=== PATIENT | male | born 1935 | race Caucasian/White ===

== ENCOUNTER 2021-08-24 03:47 | Inpatient (IN) | payer OTHER ==
[~2021-08-24] VITALS: Ht 188 cm; Wt 84.8 kg
--- NOTE | 2021-08-24 03:56 | NUR ---
pt bibra c/o sob. Pt aaox4 breathing evenly, but quickly. Per pt he was covid + on Aug 14 and has hx of lung cancer. Pt arrived with NRB @12 L O2 saturating 98%. Pt normally on 2L O2 via nc. Pt now placed on simple mask at 6L O2 saturating 97%. at bedside for bedside. Pt attached to monitor and pox. SKin is warm and dry. Pt give blanket and call light within reach
--- NOTE | 2021-08-24 03:57 | NUR ---
called lab for swabs
[2021-08-24] MEDS ORDERED: methylPREDNISolone SOD SUCC 125 MG/2ML VIAL ONE (03:58)
[2021-08-24] MEDS ORDERED: methylPREDNISolone SOD SUCC 125 MG/2ML VIAL IV ONE (04:00)
[2021-08-24] MEDS ORDERED: ALBUTEROL FS 2.5 MG/3 ML VIAL.NEB NEB ONE (04:00)
[2021-08-24] MEDS ORDERED: IPRATROPIUM NEB FS 0.5 MG/2.5 ML AMPUL.NEB NEB ONE (04:00)
[2021-08-24] MEDS ORDERED: IPRATROPIUM NEB FS 0.5 MG/2.5 ML AMPUL.NEB ONE (04:07)
[2021-08-24] MEDS ORDERED: ALBUTEROL FS 2.5 MG/3 ML VIAL.NEB ONE (04:07)
[2021-08-24] MEDS ORDERED: ATEN25TA PO (04:09)
[2021-08-24] MEDS ORDERED: LISI-768 PO (04:10)
[2021-08-24] MEDS ORDERED: RIVA10TA PO (04:10)
--- NOTE | 2021-08-24 04:11 | NUR ---
blood sent to lab
--- NOTE | 2021-08-24 04:11 | NUR ---
rt at bedside
[2021-08-24 04:18] LABS: HEMOGLOBIN 12.1 g/dL (13.5-17.5); LYMPHOCYTES # (AUTO) 0.8 K/uL (0.8-4.8)
--- NOTE | 2021-08-24 04:20 | NUR ---
SON (POWER OF ASSISTANT PROPERTY MANAGER) VIOLA LIMA PER SON PT DNI AND WILL DROP OFF ADVANCED DIRECTIVE AT A LATER DATE
[2021-08-24 04:22] LABS: BASOPHILS # (AUTO) 0.1 K/uL (0.0-0.2); BASOPHILS % (AUTO) 0.2 % (0.0-2.0); HEMATOCRIT 38 % (39-51); MEAN CORPUSCULAR HGB CONC 32 g/dl (31.0-36.0); MEAN CORPUSCULAR VOLUME 85 fL (80-96); MONOCYTES # (AUTO) 0.7 K/uL (0.1-1.30); MONOCYTES % (AUTO) 1.7 % (2.0-12.0); NEUTROPHILS % (AUTO) 96.1 % (43.0-81.0); PLATELET COUNT (AUTO) 451 K/uL (150-450); RED BLOOD CELL COUNT(AUTO) 4.43 MIL/uL (4.5-6.0)
--- NOTE | 2021-08-24 04:23 | NUR ---
xray at bedside
[2021-08-24 04:26] LABS: WHITE BLOOD COUNT (AUTO) 41.6 K/uL (4.3-11.0)
[2021-08-24] MEDS ORDERED: LEVOFLOXACIN 750 MG /D5W 150ML PIGGYBACK IV ONE (04:30)
[2021-08-24] MEDS ORDERED: IV NS 0.9% 1,000 ML BAG IV ONE (04:30)
--- NOTE | 2021-08-24 04:31 | NUR ---
LAUREN DONE AND SENT TO LAB
[2021-08-24 04:34] LABS: ABG BASE EXCESS 10.5 mmol/L; ABG OXYGEN SATURATION 93.9 % (92.0-98.5); ABG PCO2 60.6 mmHg (35.0-45.0); ABG PH 7.408 (7.350-7.450); ABG PO2 69.1 mmHg (75.0-100.0); AaDO2 175.5 mmHg; COHb 0.6 % (0.5-1.5); MetHb 0.1 % (0.0-1.5); O2Hb 93.2 % (94.0-97.0); SITE, ABG Right Radial; VENT MODE, BG 6 LSM
[2021-08-24 04:37] LABS: ALANINE AMINOTRANSFERASE 22 U/L (12-78); ALBUMIN 2.7 g/dL (3.4-5.0); ALKALINE PHOSPHATASE 88 U/L (46-116); ASPARTATE AMINOTRANSFERASE 19 U/L (15-37); BILIRUBIN,DIRECT 0.2 mg/dL (0.0-0.2); BILIRUBIN,TOTAL 0.4 mg/dL (0.2-1.0); CALCIUM, SERUM 8.9 mg/dL (8.5-10.1); CHLORIDE 85 mmol/L (98-107); CREATININE 0.6 mg/dL (0.6-1.3); GLUCOSE 101 mg/dL (74-106); POTASSIUM 4.8 mmol/L (3.5-5.1); SODIUM SERUM 127 mmol/L (136-145); TOTAL PROTEIN, SERUM 7.1 g/dL (6.4-8.2); UREA NITROGEN, BLOOD 21 mg/dL (7-18)
[2021-08-24] MEDS ORDERED: LEVOFLOXACIN 750 MG /D5W 150ML 150 ML IV ONE (04:38)
[2021-08-24 04:44] LABS: CARBON DIOXIDE 40 mmol/L (21-32)
[2021-08-24 04:45] LABS: D-DIMER 0.3 mg/L(FEU (0.17-0.50)
[2021-08-24 04:46] LABS: CREATINE KINASE, TOTAL 26 U/L (39-308); FERRITIN 503 ng/mL (8-388)
[2021-08-24] MEDS ORDERED: CEFEPIME 1 GM in IV D5W 50 ML IV SCH (05:00)
[2021-08-24] MEDS ORDERED: ACETAMINOPHEN 325 MG TABLET PO PRN (05:00)
[2021-08-24] MEDS ORDERED: ONDANSETRON HCL/PF 4 MG/2 ML VIAL IVP PRN (05:00)
[2021-08-24] MEDS ORDERED: ACETAMINOPHEN 650 MG/SUPP.RECT RC PRN (05:00)
[2021-08-24] MEDS ORDERED: ALBUTEROL SULFATE 8 GM HFA.AER.AD IH PRN (05:00)
[2021-08-24 05:08] LABS: NEUTROPHILS % (MANUAL) 85 (42-76)
[2021-08-24 05:09] LABS: BAND % (MANUAL) 6 % (0.0-5.0); LYMPHOCYTES % (MANUAL) 1 % (16-48); METAMYELOCYTES % 2 % (0-0); MYELOCYTES % 2 % (0-0); REACTIVE LYMPHOCYTES 4 % (0-0)
--- NOTE | 2021-08-24 05:19 | NUR ---
called house sup for annmarie bed
--- NOTE | 2021-08-24 05:22 | NUR ---
RECIEVED BED 103
--- NOTE | 2021-08-24 05:33 | NUR ---
called td to have images read, radiolgist reading now
--- NOTE | 2021-08-24 05:43 | NUR ---
gave report to severiano Sierra for tanya
--- NOTE | 2021-08-24 06:30 | NUR ---
0630 Admitted from ER 85 year old male via [place] with dx covid PNA. Awake alert and oriented x 4. On simple mask at 6L satting 98%. Noted with SOB on exertion. Placed on high vazquez's position for maximum oxygenation. Noted with crackles when checked. Admitted with IVF infusing to left AC site. Good blood return noted when checked. Vital signs stable. No c/o pain when asked. Placed on contact and droplet isolation for covid. Connected to aquaculture and fisheries professor, SR in the 70s. Call light placed within reach and instructed to call for assistance.
--- NOTE | 2021-08-24 06:50 | NUR ---
[address] Jassi Olvera called and updated him on patient's current condition. According to him patient does not wish to be intubated and he has an advanced directives that he will fax us as soon an possible. Clarified with patient and he said he does not want to be intubated and it was witnessed by another nurse. DRYING UNIT FELTING MACHINE OPERATOR Brie Busby was notified of patient's DNR DNI status. Per Dr. Jassi Olvera patient may be transferred to ICU if BP drops and may be started on pressor if needed.
--- NOTE | 2021-08-24 07:25 | NUR ---
0725 Report given to MEY Vogel for transfer of care with questions answered.
--- NOTE | 2021-08-24 07:45 | NUR ---
0745 Sleeping on high vazquez's position. No signs of respiratory distress noted. O2 saturation at 98%.
[2021-08-24] MEDS ORDERED: CEFEPIME 2 GM in IV D5W 100 ML IV SCH ×2 (08:00→13:00)
--- NOTE | 2021-08-24 08:00 | NUR ---
GAMALIEL RN NOTE RECEIVED PATENT IN BED ALERT ORIENTED ON 6L NC ,SATURATION 95%, ON TELE MONITOR SR HR 72 , LT AC HL INTACT ON IVF ORDERED , BED IN LOWEST AND LOCKED POSITION , PLAN OF CARE DISCUSSED WITH PATIENT, UNFITTED UNDER CARE DR PACKER, BELONGING CHECKED BY SCRATCHER TENDER , VS TAKEN , ATE 50 % 0F FOOD , WILL CONT TO MONITOR
[2021-08-24] MEDS: ATENOLOL 25 MG TABLET PO SCH (08:37)
[2021-08-24] MEDS: DEXAMETHASONE SOD PHOSPHATE 10 MG/ML VIAL IV SCH (08:38)
[2021-08-24] MEDS: PANTOPRAZOLE 40 MG TABLET.DR PO SCH (08:38)
[2021-08-24] MEDS: LISINOPRIL (5MG) 5 MG TABLET PO SCH (08:39)
[2021-08-24 09:23] VITALS: BP 136/67
--- NOTE | 2021-08-24 09:35 | NUR ---
GAMALIEL RN NOTE SEEN BY DR PEREZ PHARMACY INTAKE COORDINATOR UPDATED PATIENT CONDITION , AWARE THAT VERY CONGESTED , STSTED THAT WILL CHECK IT OUT
--- NOTE | 2021-08-24 11:00 | NUR ---
director telecommunications note patient c\o unable to urinate , spoke with son and called to dr cecilio barkley to insert Travis roper , order carried out Addendum: 08/24/21 at 1106 by JUSTIN BRADLEY RN TRAVIS CATH FULL STACK SOFTWARE DEVELOPER ORDERED WITH 300 ML OF YELLOW COLOR URINE NOTED WILL MONITOR
[2021-08-24 12:19] VITALS: BP 107/59
--- NOTE | 2021-08-24 12:22 | NUR ---
GIS DATABASE ADMINISTRATOR NOTE DR PACKER AT BEDSIDE NOTIFIED THAT PATIENT VERY CONGESTED ALSO REPORTED THAT PER TECH LT LEG DVT NO REPORT ON COMPUTER YET ,PATIENT ON XARELTO PO STATED THAT WILL CHECK IT OUT
[2021-08-24] MEDS: DOXYCYCLINE 100 MG in IV D5W 100 ML IV SCH ×2 (13:15→20:02)
--- NOTE | 2021-08-24 15:00 | NUR ---
TUBULAR RIVETER NOTE SEEN BY ID DOCTOR AWARE THAT WBC 41.6 WILL F\U
[2021-08-24] MEDS: CEFEPIME 2 GM in IV D5W 100 ML IV SCH ×2 (15:56→23:35)
[2021-08-24 16:52] VITALS: BP 135/82
[2021-08-24] MEDS ORDERED: RIVAROXABAN 10 MG TABLET PO SCH (17:00)
--- NOTE | 2021-08-24 18:23 | NUR ---
SENIOR MERCHANDISER NOTE HAVING DINNER, STILL WIT SOB NOTED , ON 8L SIMPLE MASK SATURATION 95% AT THIS TIME, ON IV ATB ORDERED BED IN LOWEST AND LOCKED POSITION , ALERT ORIENTED , CALL LIGHT WITHIN REACH , WILL MONITOR
--- NOTE | 2021-08-24 19:15 | NUR ---
TREE TRIMMING SUPERVISOR NOTE PT AWAKE IN BED, WATCHING TV, A/OX4, ABLE TO VERBALIZE NEEDS. HAS EPISODES OF SOB AND CONGESTED COUGHING. CONT ON O2 @8LPM SIMPLE MASK, O2SAT 97% AT THIS TIME. NO C/O PAIN/DISCOMFORT. TELE MONITOR READING SR 76. F/C IN PLACE, DRAINING CLEAR YELLOW URINE. PT IN NO ACUTE DISTRESS. SAFETY MEASURES IN PLACE, BED IN LOWEST LOCKED POSITION, S/R UPX2, CALL LIGHT WITHIN REACH. WILL CONT TO MONITOR.
[2021-08-24 20:00] VITALS: BP 142/79
--- NOTE | 2021-08-24 21:00 | NUR ---
RN NOTE O2 TO 6LPM VIA SIMPLE MASK AT THIS TIME, O2 SAT 96-97%
[2021-08-25] VITALS: BP 154/80
--- NOTE | 2021-08-25 00:30 | NUR ---
RN NOTE PATIENT O2:84 ON 6L OXYGEN VIA NASAL CANNULA,CHANGED TO NON REBREATHER MASK AND INCREASED TO 15L DR PEREZ WANTS TO 88 AND ABOVE CONTINUE TO MONITOR.
[2021-08-25 05:00] VITALS: BP 134/81
--- NOTE | 2021-08-25 06:45 | NUR ---
DITCH RIDER CLOSING NOTE PT RESTING IN BED, EASILY AROUSABLE TO STIMULI, A/OX4, ABLE TO VERBALIZE NEEDS. STILL WITH SOB AND CONGESTED COUGH. CONT'D O2 @8LPM SIMPLE MASK, O2SAT 96% AT THIS TIME. DENIES PAIN. TELE MONITOR READING SR 70'S. F/C IN PLACE, DRAINING CLEAR YELLOW URINE. NO ACUTE DISTRESS. SAFETY MEASURES MAINTAINED, BED IN LOWEST LOCKED POSITION, S/R UPX2, CALL LIGHT WITHIN REACH.
[2021-08-25 07:15] LABS: ALANINE AMINOTRANSFERASE 17 U/L (12-78); ALBUMIN 2.1 g/dL (3.4-5.0); ALKALINE PHOSPHATASE 74 U/L (46-116); ASPARTATE AMINOTRANSFERASE 16 U/L (15-37); BILIRUBIN,TOTAL 0.4 mg/dL (0.2-1.0); CALCIUM, SERUM 8.2 mg/dL (8.5-10.1); CARBON DIOXIDE 38 mmol/L (21-32); CHLORIDE 86 mmol/L (98-107); CREATININE 0.4 mg/dL (0.6-1.3); GLUCOSE 102 mg/dL (74-106); MAGNESIUM 1.9 mg/dL (1.8-2.4); PHOSPHORUS 2.6 mg/dL (2.5-4.9); POTASSIUM 4.3 mmol/L (3.5-5.1); SODIUM SERUM 121 mmol/L (136-145); UREA NITROGEN, BLOOD 16 mg/dL (7-18)
--- NOTE | 2021-08-25 07:30 | NUR ---
COMMODITIES TRADER OPENING NOTES RECEIVED PT AWAKE IN BED, A/OX4, ABLE TO VERBALIZE NEEDS. NOTED WITH EPISODES OF SOB AND CONGESTED COUGHING. CONT ON O2 @6-8LPM SIMPLE MASK, O2SAT 99% AT THIS TIME. NO C/O PAIN/DISCOMFORT. ON EXTERNAL MONITOR SHOWING SR HR AT80'S. F/C IN PLACE, DRAINING CLEAR YELLOW URINE. PT IN NO ACUTE DISTRESS. SAFETY MEASURES IN PLACE, BED IN LOWEST LOCKED POSITION, SIDE RAILS UP X 2, CALL LIGHT WITHIN REACH. WILL CONTINUE TO MONITOR ACCORDINGLY.
[2021-08-25 07:31] LABS: BASOPHILS % (AUTO) 0.1 % (0.0-2.0); HEMATOCRIT 33 % (39-51); HEMOGLOBIN 10.6 g/dL (13.5-17.5); LYMPHOCYTES # (AUTO) 0.5 K/uL (0.8-4.8); LYMPHOCYTES % (AUTO) 1.2 % (20.0-44.0); MEAN CORPUSCULAR HGB CONC 32 g/dl (31.0-36.0); MEAN CORPUSCULAR VOLUME 85 fL (80-96); MONOCYTES # (AUTO) 0.8 K/uL (0.1-1.30); MONOCYTES % (AUTO) 1.9 % (2.0-12.0); NEUTROPHILS # (AUTO) 42.4 K/uL (1.8-8.9); NEUTROPHILS % (AUTO) 96.8 % (43.0-81.0); PLATELET COUNT (AUTO) 306 K/uL (150-450); RED BLOOD CELL COUNT(AUTO) 3.87 MIL/uL (4.5-6.0)
[2021-08-25 07:38] LABS: WHITE BLOOD COUNT (AUTO) 43.8 K/uL (4.3-11.0)
[2021-08-25] MEDS: PANTOPRAZOLE 40 MG TABLET.DR PO SCH (07:55)
--- NOTE | 2021-08-25 08:00 | NUR ---
RN NOTES DUE CEFEPIME NOT YET AVAILABLE, INFORMED PHARMACY AND SPOKE TO [facility]. PER [facility] THEY WILL BE SENDING DUE DOSE.
[2021-08-25] MEDS: DEXAMETHASONE SOD PHOSPHATE 10 MG/ML VIAL IV SCH (08:30)
[2021-08-25] MEDS: LISINOPRIL (5MG) 5 MG TABLET PO SCH (08:30)
[2021-08-25] MEDS: ATENOLOL 25 MG TABLET PO SCH (08:30)
[2021-08-25] MEDS: DOXYCYCLINE 100 MG in IV D5W 100 ML IV SCH ×2 (08:31→20:15)
[2021-08-25] MEDS: CEFEPIME 2 GM in IV D5W 100 ML IV SCH ×2 (09:28→15:29)
[2021-08-25 09:39] VITALS: BP 164/74
--- NOTE | 2021-08-25 09:46 | NUR ---
WOUND CARE CONSULT: REVIEWED CHART, NURSING DOCUMENTATION AND PHOTOS WHICH INDICATE SACRAL SCAR AND RASH TO PERINEUM, INNER BUTTOCKS AND GROIN FOLDS, PRESENT ON ADMISSION. RECOMMENDATIONS MADE FOR SKIN PROTECTION. DISCUSSED WITH NURSING STAFF. [facility]. MD IN AGREEMENT WITH PLAN OF CARE.
[2021-08-25] MEDS ORDERED: Z GUARD REMEDY 2 OZ OINT TP PRN (10:00)
[2021-08-25] MEDS: Z GUARD REMEDY 2 OZ OINT TP SCH (10:00)
[2021-08-25 10:18] LABS: LYMPHOCYTES % (MANUAL) 2 % (16-48); MONOCYTES % (MANUAL) 3 % (0-11.0); NEUTROPHILS % (MANUAL) 95 (42-76)
--- NOTE | 2021-08-25 11:00 | NUR ---
RN NOTES PATIENT NOTED WITH A-FIB, DR. PACKER ON UNIT, AWARE, NO NEW ORDERS MADE. DR. PACKER UPDATED PATIENT'S SON VIA PHONE CALL.
[2021-08-25] MEDS ORDERED: TOCILIZUMAB 400 MG in IV NS 0.9% 80 ML IV ONE (12:00)
[2021-08-25 12:13] LABS: C-REACTIVE PROTEIN 27.4 mg/dL (0.0-0.9)
[2021-08-25 12:37] LABS: FERRITIN 613 ng/mL (8-388)
--- NOTE | 2021-08-25 13:23 | NUR ---
RN NOTES PATIENT NOTED WITH A-FIB HR AT 130'S. DR PACKER MADE AWARE. NO NEW ORDERS MADE.
[2021-08-25 13:58] VITALS: BP 138/72
[2021-08-25] MEDS ORDERED: IV D5/ 0.9% NACL 1,000 ML IV PRN (14:00)
[2021-08-25 14:43] LABS: C-REACTIVE PROTEIN 21.6 mg/dL (0.0-0.9)
[2021-08-25 15:02] LABS: ABG BASE EXCESS 7.9 mmol/L; ABG OXYGEN SATURATION 95.3 % (92.0-98.5); ABG PH 7.284 (7.350-7.450); ABG PO2 81.1 mmHg (75.0-100.0); AaDO2 258.7 mmHg; MetHb 0.3 % (0.0-1.5); SITE, ABG Right Radial; VENT MODE, BG SIMPLE MASK
--- NOTE | 2021-08-25 15:47 | NUR ---
PT PLACED ON 6LPM VIA N/C POST ABG PER DR PEREZ. GOAL TO MAINTAIN SPO2 88% SPO2 89% HR 93 Addendum: 08/25/21 at 1551 by ELSA HONG RT Amended: Links added.
[2021-08-25] MEDS ORDERED: IV NS 0.9% 250 ML IV ONE (16:31)
[2021-08-25] MEDS ORDERED: IOHEXOL-350 100 ML VIAL IV ONE (16:31)
[2021-08-25] MEDS: CLOTRIMAZOLE 1% 15 GM TUBE TP SCH (16:37)
[2021-08-25 17:02] VITALS: BP 121/79
[2021-08-25] MEDS: RIVAROXABAN 10 MG TABLET PO SCH (17:30)
--- NOTE | 2021-08-25 18:36 | NUR ---
RN NOTE RECEIVED PATIENT IN BED RESTING ALERT ORIENTED X4 VERBALLY RESPONSIVE ON 6L OXYGEN VIA NASAL CANNULA O2:90% IV SITE IS ON LEFT AC INTACT PATENT ON IV HYDRATION D5NS 75CC/HR,ROBLES CATHETER IN PLACE URINE DRAINING YELLOW AND CLEAR BY GRAVITY,SAFETY MEASURE IMPLEMENT BED IN LOW POSITON AND LOCKED CALL LIGHT WITHIN REACH CONTINUE TO MONITOR.
--- NOTE | 2021-08-25 18:37 | NUR ---
FORM STRIPPER CLOSING NOTES RECEIVED PT AWAKE IN BED, A/OX4, ABLE TO VERBALIZE NEEDS. NOTED WITH EPISODES OF SOB AND CONGESTED COUGHING. ON O2 @6LPM VIA NC TO MAINTAIN SATURATION AT 88 AND ABOVE, O2 SAT 89% AT THIS TIME. NO C/O PAIN/DISCOMFORT. ON EXTERNAL MONITOR SHOWING SR WITH A-FIB HR AT 80'S. F/C IN PLACE, DRAINING CLEAR YELLOW URINE. PT IN NO ACUTE DISTRESS. SAFETY MEASURES IN PLACE, BED IN LOWEST LOCKED POSITION, SIDE RAILS UP X 2, CALL LIGHT WITHIN REACH. ALL NEEDS ATTENDED AND MET, DUE MEDS GIVEN ORDERED. WILL ENDORSE TO ONCOMING SHIFT FOR ANGUS.
[2021-08-25 21:00] VITALS: BP 153/83
[2021-08-26 01:00] VITALS: BP 89/46
--- NOTE | 2021-08-26 01:00 | NUR ---
RN NOTE CALLED VEGETABLE FARMER WAFER CUTTER KARLENE GAN, AND NOTIFIED,SHE ORDERED DISCONTINUE IV HYDRATION NOTED AND CARRIED OUT.
--- NOTE | 2021-08-26 01:30 | NUR ---
RN NOTE CALLED SON MELODIE INFORMED PATIENT SITUATION HE KEEPS DNR/DNI CODE STATUS CONTINUE TO MONITOR.
--- NOTE | 2021-08-26 01:41 | NUR ---
RN NOTE PATIENT SON CALLED AND REQUESTING FACETIME WITH PATIENT,SON DID FACETIME WITH PATIENT CONTINUE TO MONITOR./
--- NOTE | 2021-08-26 02:00 | NUR ---
RN NOTE PATIENT'S AND DAUGHTER DID FACETIME WTIH PATIENT,CONTINUE TO MONITOR.
[2021-08-26 05:00] VITALS: BP 107/52
--- NOTE | 2021-08-26 05:00 | NUR ---
RN NOTE PATIENT'S FAMILY ,SON, DAUGHTER CAME TO HOSPITAL AND VISIT PATIENT FROM OUT SIDE OF ROOM FROM WINDOW,FAMILY REFUSES PATIENT DO BLOOD DRAW FOR LAB NOTED,CONTINUE TO MONITOR.
--- NOTE | 2021-08-26 06:48 | NUR ---
RN NOTE PATIENT DECLINING ON NON REBREATHER MASK 15L O2:98% NOT VERBALLY RESPONSIVE ONLY RESPONSIVE TO PAIN STIMULI BP 75/42 HR 73 RR:10,RESPONSIBLE LIBERTARIAN SON (MELODIE) REFUSES TRANSFER TO ICU.ENDORSE NEXT COMING SHIFT FOR CONTINUATION OF CARE.
[2021-08-26] MEDS: PANTOPRAZOLE 40 MG TABLET.DR PO SCH (07:30)
--- NOTE | 2021-08-26 07:30 | NUR ---
BOOM WORKER AM NOTES RECEIVED PT IN BED, EYES CLOSED, NON VERBAL, RESPONDS TO PAIN STIMULI, ON NRM AT 15LPM, O2 SAT AT 96%, NOTED WITH EPISODES OF CONGESTED COUGHING. RESPIRATION UNLABORED, SR HR 87 ON MONITOR, NO SIGNS OF PAIN/DISCOMFORT. LEFT AC G20 IV ACCESS FLUSHES WELL, SITE CLEAR. F/C IN PLACE, DRAINING CLEAR YELLOW URINE. SEE NURSING FLOWSHEET FOR SKIN ISSUES. CARDIAC DIET BUT UNABLE TO FEED RIGHT NOW. SAFETY MEASURES IN PLACE, BED IN LOWEST LOCKED POSITION, SIDE RAILS UP X 2, CALL LIGHT WITHIN REACH. WILL CONT TO MONITOR.
--- NOTE | 2021-08-26 07:45 | NUR ---
RN NOTES SPOKE WITH MELODIE ZAPATA - SON, AND ACCORDING TO HIM AND THE REST OF THE FAMILY, THEY ONLY WANT COMFORT MEASURES FOR THEIR DAD.NO MEDS, NO LABS NO DIAGNOSTIC. ALSO IF THE PATIENT COULD BE ON HOSPICE. SOON MIX CHARGE NURSE AWARE. DR. BIRDIE GROVE NOTIFIED.
[2021-08-26] MEDS: CEFEPIME 2 GM in IV D5W 100 ML IV SCH ×3 (08:00→16:00)
[2021-08-26] MEDS: DOXYCYCLINE 100 MG in IV D5W 100 ML IV SCH (08:53)
[2021-08-26] MEDS: DEXAMETHASONE SOD PHOSPHATE 10 MG/ML VIAL IV SCH (08:53)
[2021-08-26] MEDS: ATENOLOL 25 MG TABLET PO SCH (08:54)
[2021-08-26] MEDS: LISINOPRIL (5MG) 5 MG TABLET PO SCH (08:54)
[2021-08-26] MEDS: Z GUARD REMEDY 2 OZ OINT TP SCH (08:55)
[2021-08-26] MEDS: CLOTRIMAZOLE 1% 15 GM TUBE TP SCH ×2 (08:56→16:15)
[2021-08-26 09:00] VITALS: BP 115/49
[2021-08-26 13:00] VITALS: BP 171/78
[2021-08-26] MEDS: RIVAROXABAN 10 MG TABLET PO SCH (16:10)
[2021-08-26 17:00] VITALS: BP 125/38
--- NOTE | 2021-08-26 18:05 | NUR ---
RN NOTES 1740 - PATIENT FOUND NO PULSE, NOT BREATHING. PRONOUNCED AT 1740. FAMILY AT BEDSIDE. 174 - DR. BIRDIE GROVE NOTIFIED. [facility] PASSPORT APPLICATION EXAMINER NOTIFIED. 175 - [facility] NOTIFIED. CASE# - [id number] - CASE CLOSED . ADMITTING NOTIFIED. BELONGINGS CHECKED AND RETURNED TO PT'S SON - DR. MELODIE ZAPATA. MORTUARY - [facility] PHONE NUMBER [phone] POST MORTEM CARE TO BE DONE. PROVIDED EMOTIONAL SUPPORT TO FAMILY.
--- NOTE | 2021-08-26 18:38 | NUR ---
RN NOTES RECEIVED A CALL FROM [facility]. WILL CYTOTECHNOLOGIST/HISTOTECHNOLOGIST REMAINS IN 2 HOURS
--- NOTE | 2021-08-26 19:37 | NUR ---
breakdown person Opening Notes Received report from the AM Nurse. [facility] . Post mortem care is currently being performed.
--- NOTE | 2021-08-26 19:54 | NUR ---
delivery driver Notes Post mortem care completed
--- NOTE | 2021-08-26 20:17 | NUR ---
crepe sole scourer Notes Patient was picked up from the unit to go [facility].
== END 2021-08-26 17:45 | DRG 177 ==
LOC: ER 03:51 → TELE-TD 05:27 → TELE1 13:04
DX: U07.1 COVID-19 (principal); J12.82 Pneumonia due to coronavirus disease 2019; J96.21 Acute and chronic respiratory failure with hypoxia; J96.22 Acute and chronic respiratory failure with hypercapnia; I82.412 Acute embolism and thrombosis of left femoral vein; E22.2 Syndrome of inappropriate secretion of antidiuretic hormone; J44.0 Chronic obstructive pulmonary disease with (acute) lower respiratory infection; Z51.5 Encounter for palliative care; Z85.118 Personal history of other malignant neoplasm of bronchus and lung; E87.6 Hypokalemia; I10 Essential (primary) hypertension; Z66 Do not resuscitate; Z87.891 Personal history of nicotine dependence; Z90.2 Acquired absence of lung [part of]; Z79.01 Long term (current) use of anticoagulants; D47.3 Essential (hemorrhagic) thrombocythemia; J44.9 Chronic obstructive pulmonary disease, unspecified; D64.9 Anemia, unspecified; Z99.81 Dependence on supplemental oxygen
CPT/HCPCS: 36415; 36600; 71045-TC; 80048-TC; 80053-TC; 80076-TC; 82550-TC; 82728-TC; 83605-TC; 83615-TC; 83735-TC; 83880; 84100-TC; 84484-TC; 85025-TC; 85378-TC; 85385-TC; 85730-TC; 86140-TC; 86480; 86704; 86803; 87040-TC; 87081-TC; 87340; 87806; 87899; 93970-TC; G0378; J0692; J1100; J1956; J2930; J3490; J7030; J7040; J7042; J7050; J7060; Q9967; U0003